=== PATIENT | male | born 1935 | race Caucasian/White ===

== ENCOUNTER 2018-11-04 05:30 | Day surgery (SDC) | payer OTHER ==
[~2018-11-04] VITALS: Ht 185.4 cm; Wt 93.4 kg
[~2018-11-04 05:30] MED LIST: AMLO10TA7 PO; CLON2TAB21 PO; CYAN250014 PO; OMEP40CA37 PO; SIMV40TA5 PO; TELM1TAB6 PO
[2018-11-04] MEDS ORDERED: SODIUM CHLORIDE 0.9% 1000ML 1,000 ML IV ONE (06:06)
[2018-11-04 06:11] VITALS: BP 145/49
[2018-11-04] MEDS ORDERED: PROPOFOL 10 MG/ML 20ML VIAL IV ONE (06:34)
[2018-11-04] MEDS ORDERED: GLYCOPYRROLATE 0.2 MG/ML 5 ML VIAL ONE (06:37)
[2018-11-04] MEDS ORDERED: EPHEDRINE SULFATE 50 MG/ML AMPULE ONE (06:49)
[2018-11-04 06:56] VITALS: BP 103/42
[2018-11-04 07:01] VITALS: BP 113/50
[2018-11-04 07:06] VITALS: BP 113/52
[2018-11-04 07:11] VITALS: BP 116/51
[2018-11-04 07:16] VITALS: BP 115/48
== END 2018-11-04 07:26 | disposition home or self-care (01) ==
LOC: DAH 05:30 → ENDO 05:30
PROVIDERS: ATTEND Internal Medicine
DX: K22.70 Barrett's esophagus without dysplasia (principal); K44.9 Diaphragmatic hernia without obstruction or gangrene; K29.50 Unspecified chronic gastritis without bleeding; K31.89 Other diseases of stomach and duodenum; D13.1 Benign neoplasm of stomach; E78.00 Pure hypercholesterolemia, unspecified; I10 Essential (primary) hypertension; K21.9 Gastro-esophageal reflux disease without esophagitis; E78.5 Hyperlipidemia, unspecified; K59.00 Constipation, unspecified; Z79.899 Other long term (current) drug therapy; Z98.49 Cataract extraction status, unspecified eye; Z98.890 Other specified postprocedural states; Z87.442 Personal history of urinary calculi
CPT/HCPCS: 43239; 43251; 88305; 93005; A4606; J2704; J3490 ×2; J7030

== ENCOUNTER → 2020-08-15 | Outpatient (CLI) | payer OTHER ==
[~2020-08-15] MED LIST changes: +AMLO-258 PO; -AMLO10TA7 PO; +OMEP40CA13 PO; -OMEP40CA37 PO; +SIMV-46 PO; -SIMV40TA5 PO
== END | disposition home or self-care (01) ==
LOC: RAH 09:30
PROVIDERS: ATTEND Internal Medicine Gastroenterology
DX: R13.11 Dysphagia, oral phase (principal); R63.3 Feeding difficulties
CPT/HCPCS: 74230; 92611

== ENCOUNTER 2023-11-19 06:16 | Day surgery (SDC) | payer OTHER ==
[~2023-11-19] VITALS: Ht 185.4 cm; Wt 106.6 kg
[2023-11-19] VITALS (12 sets, daily range): BP systolic 143–167; BP diastolic 55–80; PULSE 59–64; RESP 12–23
[~2023-11-19 06:16] MED LIST changes: -OMEP40CA13 PO; +OMEP40CA21 PO
[2023-11-19] MEDS ORDERED: SOLI5TAB6 PO (07:23)
[2023-11-19] MEDS ORDERED: VALS160T29 PO (07:23)
[2023-11-19] MEDS ORDERED: CARB-38 PO (07:23)
[2023-11-19] MEDS ORDERED: ESOM40CA66 PO (07:23)
[2023-11-19] MEDS ORDERED: CARV25TA PO (07:23)
[2023-11-19] MEDS ORDERED: ATOR40TA69 PO (07:23)
[2023-11-19] MEDS ORDERED: FAMO40TA7 PO (07:23)
[2023-11-19] MEDS ORDERED: CHOL50002 PO (07:23)
[2023-11-19] MEDS ORDERED: RIVA15TA PO (07:23)
[2023-11-19] MEDS ORDERED: ROPI1TAB46 PO (07:23)
[2023-11-19] MEDS: 0.9%NACL 1000ML 1,000 ML IV ONE (07:24)
[2023-11-19] MEDS ORDERED: PROPOFOL 10 MG/ML 20ML VIAL IV ONE (08:24)
[2023-11-19] MEDS ORDERED: LIDOCAINE PF 100MG/5ML (2%) SYRINGE 5ML ONE (08:28)
== END 2023-11-19 10:20 | disposition home or self-care (01) ==
LOC: DAH 06:16 → ENDO 06:16
PROVIDERS: ATTEND Internal Medicine Gastroenterology
DX: R93.2 Abnormal findings on diagnostic imaging of liver and biliary tract (principal); K80.20 Calculus of gallbladder without cholecystitis without obstruction; I10 Essential (primary) hypertension; K21.9 Gastro-esophageal reflux disease without esophagitis; G20.A1 Parkinson's disease without dyskinesia, without mention of fluctuations; E78.00 Pure hypercholesterolemia, unspecified; Z95.0 Presence of cardiac pacemaker; K22.70 Barrett's esophagus without dysplasia; R05.9 Cough, unspecified; K44.9 Diaphragmatic hernia without obstruction or gangrene; K42.9 Umbilical hernia without obstruction or gangrene; Z93.3 Colostomy status; Z79.899 Other long term (current) drug therapy
CPT/HCPCS: 43237; J7030; J2001; J2704; A4620; A4215 ×2; A4223; A4222; A4221; A4663; A4606; J3490